=== PATIENT | male | born 1985 | race Caucasian/White ===

== ENCOUNTER 2025-06-14 06:21 | Day surgery (SDC) | payer SELFPAY ==
[2025-06-14] MEDS ORDERED: Etomidate 2 MG/ML 10 ML SDV ONE ×2 (07:09→07:17)
[2025-06-14] MEDS ORDERED: fentaNYL 100 MCG/2 ML SDV ONE (07:09)
[2025-06-14] MEDS ORDERED: Midazolam 1 MG/ML 2 ML SDV ONE (07:09)
[2025-06-14] MEDS: Lactated Ringers 1,000 ML IV SCH (07:20)
== END 2025-06-14 09:30 | disposition home or self-care (01) ==
LOC: JP.SDS 06:21
PROVIDERS: ATTEND Surgery
DX: K63.5 Polyp of colon (principal)
CPT/HCPCS: 00811; 45380; 45385; J2250; J3010; J3490; J7120; 88305